=== PATIENT | male | born 1950 | race Caucasian/White ===

== ENCOUNTER 2023-12-22 18:12 | Inpatient (IN) | payer OTHER ==
[~2023-12-22] VITALS: Ht 167.6 cm; Wt 90.7 kg
[2023-12-22 18:15] VITALS: RESP 18; TEMP 98.3
[2023-12-22] MEDS ORDERED: iohexoL 350 mgI/mL, 100 ML INFUS..BTL IV ONE (18:21)
[2023-12-22 18:51] LABS: HEMATOCRIT 49.9 % (36-54); HEMOGLOBIN 16.9 g/dL (14.0-18.0); MEAN CORPUSCULAR HEMOGLOBIN 29 pg (27-31); MEAN CORPUSCULAR HGB CONC 34 % (32-36); MEAN CORPUSCULAR VOLUME 85 fL (79.0-98.0); PLATELET COUNT (AUTO) 247 K/uL (130-430); RED BLOOD CELL COUNT(AUTO) 5.86 MIL/uL (4.2-6.2); RED CELL DISTRIBUTION WIDTH 14.6 % (9.0-15.0)
[2023-12-22] MEDS: GLUCAGON,HUMAN RECOMBINANT 1 MG VIAL IVP ONE (19:00)
[2023-12-22 19:04] LABS: PROTHROMBIN TIME 10.7 SECS (9.5-12.5)
[2023-12-22 19:05] LABS: ANION GAP 11 (5-15); CARBON DIOXIDE 28 mmol/L (23-29); CHLORIDE 100 mmol/L (98-107); CREATININE 1.15 mg/dL (0.55-1.30); GLUCOSE 155 mg/dL (74-106); POTASSIUM 3.5 mmol/L (3.5-5.1); SODIUM SERUM 139 mmol/L (136-145); UREA NITROGEN, BLOOD 14 mg/dL (8-21)
[2023-12-22] MEDS ORDERED: EMPA25TA PO (19:36)
[2023-12-22] MEDS ORDERED: GLIM2TAB PO (19:36)
[2023-12-22] MEDS ORDERED: LIP40 PO (19:36)
[2023-12-22] MEDS ORDERED: METF-833 PO (19:36)
[2023-12-22] MEDS ORDERED: LISI20TA30 PO (19:36)
[2023-12-22] MEDS ORDERED: ASA81 PO (19:36)
[2023-12-22] MEDS ORDERED: CHLO25TA2 PO (19:36)
[2023-12-22 20:36] LABS: HEMOGLOBIN A1C 8.74 % (<5.7)
[2023-12-22 20:40] LABS: BAND % (MANUAL) 4 % (0-6); BASOPHILS % (MANUAL) 0 % (0-2); EOSINOPHILS % (MANUAL) 0 % (0-7); LYMPHOCYTES % (MANUAL) 9 % (20-46); MONOCYTES % (MANUAL) 20 % (0-11); PLATELET ESTIMATE ADEQUATE (ADEQUATE)
[2023-12-22] MEDS: LORazepam 2 MG/ML VIAL IVP ONE (20:43)
[2023-12-22 21:27] LABS: BILIRUBIN,URINE NEGATIVE (NEGATIVE); CLARITY/URINE CLEAR (CLEAR); COLOR,URINE YELLOW (YELLOW); GLUCOSE,URINE 3+ (NEGATIVE); KETONES,URINE 1+ (NEGATIVE); LEUKOCYTE ESTERASE ,URINE NEGATIVE (NEGATIVE); NITRITE, URINE NEGATIVE (NEGATIVE); PROTEIN URINE TRACE (NEGATIVE); UROBILINOGEN,URINE 0.2 (0.2-1.0)
[2023-12-22] MEDS ORDERED: METF-379 PO (22:00)
[2023-12-22 22:11] LABS: BARBITURATE, URINE NEGATIVE (NEG <=200); BENZODIAZEPINE, URINE NEGATIVE (NEG <=150); BLOOD, URINE TRACE (NEGATIVE); CANNABINOID, URINE NEGATIVE (NEG <=50); COCAINE, URINE NEGATIVE (NEG <=150); METHAMPHETAMINES SCREEN,URINE NEGATIVE (NEG <=500); OPIATE, URINE NEGATIVE (NEG <=100); PHENCYCLIDINE SCREEN,URINE NEGATIVE (NEG <=25); UR TRICYCLIC ANTIDEPRESSANTS NEGATIVE (NEG <=300); URINE AMPHETAMINE NEGATIVE (NEG <=500); URINE METHADONE NEGATIVE (NEG <=200); URINE OXYCODONE SCREEN NEGATIVE (NEG <=100)
[2023-12-22 22:12] LABS: BACTERIA,URINE RARE /HPF (None Seen); MUCUS,URINE None Seen /LPF (None Seen); RBC,URINE 0-3 /HPF (0-3); WBC,URINE 0-3 /HPF (0-3)
[2023-12-22] MEDS ORDERED: HYDROcodone/ACETAMIN 5-325 MG TAB (NORCO/ VICODIN) PO PRN (22:15)
[2023-12-22] MEDS ORDERED: HYDROcodone/ACETAMIN 10-325 MG TAB PO PRN (22:15)
[2023-12-22] MEDS ORDERED: ASPIRIN 81 MG TAB.CHEW ONE (23:02)
[2023-12-22] MEDS: CLOPIDOGREL BISULFATE 75 MG TABLET PO ONE (23:02)
[2023-12-22] MEDS ORDERED: CLOPIDOGREL BISULFATE 75 MG TABLET ONE (23:04)
[2023-12-22] MEDS: ASPIRIN 81 MG TABLET(ECOTRIN) PO ONE (23:05)
[2023-12-22] MEDS ORDERED: ASPIRIN 81 MG TABLET(ECOTRIN) ONE (23:07)
[2023-12-23] MEDS: LORazepam 2 MG/ML VIAL IM PRN (00:51)
[2023-12-23 10:05] VITALS: BP_SYST 133; PULSE 72; RESP 24; TEMP 98.3; O2SAT 93
[2023-12-23 11:00] VITALS: O2SAT 94
[2023-12-23] MEDS ORDERED: INSULIN REGULAR, HUMAN 100 UNITS/ML, 3 ML VIAL (humuLIN R) SUBCUT PRN (11:00)
[2023-12-23] MEDS: D5/0.45 NS 1,000 ML IV SCH (12:27)
[2023-12-23 12:33] VITALS: BP_SYST 133; PULSE 72; RESP 24; TEMP 98.3
[2023-12-23 12:53] VITALS: BP_SYST 143; PULSE 98; RESP 26; TEMP 98.6; O2SAT 94
[2023-12-23] MEDS: ATORVASTATIN 20 MG TABLET PO ONE (15:16)
[2023-12-23] MEDS: ASPIRIN 81 MG TABLET(ECOTRIN) PO ONE (15:17)
[2023-12-23] MEDS: CLOPIDOGREL BISULFATE 75 MG TABLET PO ONE (15:17)
[2023-12-23 16:15] VITALS: BP_SYST 132; PULSE 98; RESP 24; TEMP 98.4; O2SAT 94
[2023-12-23 18:44] LABS: CHOLESTEROL 105 mg/dL (<200); TRIGLYCERIDES 82 mg/dL (30-150)
[2023-12-23 18:45] LABS: HDL CHOLESTEROL 40 mg/dL (>45)
[2023-12-23 20:00] VITALS: O2SAT 95
[2023-12-24 01:11] VITALS: BP_SYST 132; PULSE 100; RESP 19; TEMP 98.5; O2SAT 95
[2023-12-24 08:17] VITALS: BP_SYST 126; PULSE 78; RESP 18; TEMP 98.8; O2SAT 94
[2023-12-24 09:00] VITALS: O2SAT 94
[2023-12-24] MEDS: ASPIRIN 81 MG TABLET(ECOTRIN) PO SCH (09:00)
[2023-12-24] MEDS: ATORVASTATIN 20 MG TABLET PO SCH (09:00)
[2023-12-24] MEDS: CLOPIDOGREL BISULFATE 75 MG TABLET PO SCH (09:00)
[2023-12-24] MEDS: ACETAMINOPHEN 325 MG TABLET PO PRN (09:40)
[2023-12-24 11:30] VITALS: BP_SYST 140; PULSE 65; RESP 20; TEMP 97.8; O2SAT 97
[2023-12-24] MEDS ORDERED: CLOP75TA32 PO (13:51)
[2023-12-24 14:51] VITALS: BP_SYST 140; PULSE 65; RESP 17; TEMP 97.8; O2SAT 97
== END 2023-12-24 15:30 | disposition home health service (06) | DRG 92 ==
LOC: SED 18:12 → EDBD 18:12 → STU 22:04
PROVIDERS: ADMIT Specialist; ATTEND Specialist
PROC: 4A00X4Z Measurement of Central Nervous Electrical Activity, External Approach (ICD-10-PCS; principal; 2023-12-24)
DX: G93.0 Cerebral cysts (principal); G45.9 Transient cerebral ischemic attack, unspecified; E11.9 Type 2 diabetes mellitus without complications; E78.5 Hyperlipidemia, unspecified; E66.01 Morbid (severe) obesity due to excess calories; I10 Essential (primary) hypertension; Z79.82 Long term (current) use of aspirin; Z79.84 Long term (current) use of oral hypoglycemic drugs; Z79.899 Other long term (current) drug therapy; Z68.32 Body mass index [BMI] 32.0-32.9, adult
CPT/HCPCS: 36415; 70450; 70496; 70498; 70551; 71045; 80048; 80061; 80307; 81000; 81001; 81015; 82948; 83037; 84484; 85007; 85027; 85610; 85730; 86886; 86900; 86901; 92610-GN; 93005; 95816; 97110-GP; 97116-GP; 97530-GP; 99285; G0378; J2060; Q9967

== ENCOUNTER 2024-01-24 15:40 | Emergency (ER) | payer OTHER ==
[~2024-01-24] VITALS: Ht 177.8 cm; Wt 95.7 kg
[~2024-01-24 15:40] MED LIST: ASA81 PO; CHLO25TA2 PO; CLOP75TA32 PO; EMPA25TA PO; GLIM2TAB PO; LIP40 PO; LISI20TA30 PO; METF-379 PO; METF-833 PO
[2024-01-24 15:48] VITALS: BP_SYST 109; PULSE 80; RESP 18; TEMP 98.3; O2SAT 98
[2024-01-24 16:23] LABS: BASOPHILS # (AUTO) 0.1 K/uL (0.0-0.2); BASOPHILS % (AUTO) 0.8 % (0.0-2.0); EOSINOPHILS # (AUTO) 0.1 K/uL (0.0-0.4); EOSINOPHILS % (AUTO) 1.3 % (0.0-4.0); HEMOGLOBIN 15.9 g/dL (14.0-18.0); LYMPHOCYTES # (AUTO) 1.5 K/uL (1.0-5.5); LYMPHOCYTES % (AUTO) 14.3 % (20.5-51.5); MEAN CORPUSCULAR HEMOGLOBIN 29 pg (27-31); MEAN CORPUSCULAR HGB CONC 34 % (32-36); MEAN CORPUSCULAR VOLUME 85 fL (79.0-98.0); MONOCYTES # (AUTO) 0.9 K/uL (0.0-1.0); NEUTROPHILS # (AUTO) 7.6 K/uL (1.8-7.7); NEUTROPHILS % (AUTO) 74.6 % (40.0-70.0); PLATELET COUNT (AUTO) 285 K/uL (130-430); WHITE BLOOD COUNT (AUTO) 10.1 K/uL (4.8-10.8)
[2024-01-24 16:27] LABS: ERYTHROCYTE SEDIMENTATION RATE 25 MM/HR (0-15)
[2024-01-24] MEDS: DIPHENHYDRAMINE INJ 50 MG/ML VIAL IVP ONE (16:27)
[2024-01-24] MEDS: METOCLOPRAMIDE HCL 10 MG/2 ML VIAL IVP ONE (16:27)
[2024-01-24 16:53] LABS: PROTHROMBIN TIME 10.3 SECS (9.5-12.5)
[2024-01-24 16:55] LABS: ANION GAP 10 (5-15); CALCIUM 8.9 mg/dL (8.4-11.0); CARBON DIOXIDE 26 mmol/L (23-29); CHLORIDE 105 mmol/L (98-107); CREATININE 1.03 mg/dL (0.55-1.30); GLUCOSE 110 mg/dL (74-106); POTASSIUM 3.6 mmol/L (3.5-5.1); SODIUM SERUM 141 mmol/L (136-145); UREA NITROGEN, BLOOD 14 mg/dL (8-21)
[2024-01-24 18:05] VITALS: BP_SYST 145; PULSE 86; RESP 18; TEMP 98.3; O2SAT 94
== END 2024-01-24 18:07 | disposition home or self-care (01) ==
LOC: SED 15:40
DX: G44.099 Other trigeminal autonomic cephalgias (TAC), not intractable (principal); I10 Essential (primary) hypertension; E11.9 Type 2 diabetes mellitus without complications; E78.5 Hyperlipidemia, unspecified; Z79.899 Other long term (current) drug therapy; Z79.2 Long term (current) use of antibiotics; Z79.02 Long term (current) use of antithrombotics/antiplatelets; Z79.84 Long term (current) use of oral hypoglycemic drugs
CPT/HCPCS: 99284; 96374; 70450; 96375; 80048; 85025; 85610; 85651; 85730; 36415; 82397; J1200; J2765